=== PATIENT | male | born 1965 | race African-American/Black ===

== ENCOUNTER 2019-05-09 08:28 | Outpatient (CLI) | payer OTHER ==
--- NOTE | 2019-05-09 09:00 | ULT ---
ULTRASOUND ABDOMEN LIMITED: (RIGHT UPPER QUADRANT) DATE: 05/09/2019 HISTORY: 53-year-old male with elevated LFTs. FINDINGS: Gallbladder:Not excessively distended. Normal mural thickness. No gallstones identified. No perichole cystic fluid. Common duct: 3 mm. Liver:Diffusely mildly increased echogenicity, but homogeneous. This could be normal, or could repres ent fatty liver. Pancreas:Hypoechoic appearance of portions of pancreatic head and proximal body, raising the possibil ity of acute pancreatitis. Several hyperechoic foci at the pancreatic head and proximal body, questionable for calcifications, raising the possibility of chronic pancreatitis. Distal body and christiano l of pancreas obscured by shadowing from bowel gas. Right kidney:No hydronephrosis. IMPRESSION: 1. Nonspecific findings of the pancreas raising the possibility of acute and chronic pancreatitis. Re commend correlation with serum lipase and amylase. CT would be able to demonstrate pancreas calcifications, if actually present. 2. Nonspecific appearance of liver. 3. No evidence of cholelithiasis or acute cholecystitis.
== END 2019-05-09 08:29 | disposition home or self-care (01) ==
LOC: BICULT 08:28
PROVIDERS: ATTEND Family Medicine
DX: R74.8 Abnormal levels of other serum enzymes (principal)
CPT/HCPCS: 93975

== ENCOUNTER 2021-03-21 08:49 | Outpatient (CLI) | payer OTHER | END 2021-03-21 08:50 | disposition home or self-care (01) | LOC: BICCT 08:49 | PROVIDERS: ATTEND Family Medicine | DX: R63.4 Abnormal weight loss (principal) | CPT/HCPCS: 74177 ==

== ENCOUNTER 2022-03-14 02:59 | Inpatient (IN) | payer OTHER ==
[2022-03-14] MEDS ORDERED: Acetaminophen 325 MG TAB PO PRN (05:29)
[2022-03-14 05:41] VITALS: BMI 18.5
[2022-03-14] MEDS ORDERED: HYDROcodone/Acetaminophen 5/325 mg Tablet PO PRN ×2 (09:22)
[2022-03-14] MEDS ORDERED: Bisacodyl 10 MG SUPP PR PRN (09:22)
[2022-03-14] MEDS ORDERED: Ondansetron PF 4 MG/2 ML Vial IVP PRN (09:22)
[2022-03-14] MEDS: Piperacillin/Tazobactam 3.375 GM in Sodium Chloride 0.9% 100 ML IVPB SCH ×2 (11:15→21:33)
[2022-03-14] MEDS ORDERED: Iopamidol-370 76% 500 ML 1 ML ONE (13:07)
[2022-03-14] MEDS ORDERED: Piperacillin/Tazobactam 4.5 GM in Sodium Chloride 0.9% 100 ML IVPB SCH (14:00)
[2022-03-14] MEDS: Sodium Chloride 0.9% 1,000 ML IV SCH (21:33)
[2022-03-14] MEDS: hydrOXYzine Pamoate 25 mg Capsule PO SCH (21:33)
[2022-03-14] MEDS: Ferrous Sulfate 325 MG TAB PO SCH (21:33)
[2022-03-14] MEDS: Magnesium Oxide 400 MG TAB PO SCH (21:33)
[2022-03-15] MEDS: Vancomycin 1 GM in Premix Bag 1 BAG IVPB SCH (02:33)
[2022-03-15] MEDS: Piperacillin/Tazobactam 3.375 GM in Sodium Chloride 0.9% 100 ML IVPB SCH ×4 (03:50→20:56)
[2022-03-15] MEDS: Levothyroxine Sodium 25 MCG TAB PO SCH (05:25)
[2022-03-15] MEDS: Sodium Chloride 0.9% 1,000 ML IV SCH (05:27)
[2022-03-15 06:01] LABS: #Eosinphils 0.6 thou/uL (0.0-0.7); #Monocytes 0.9 thou/uL (0.11-0.59); #Neutrophils 10.1 thou/uL (1.40-6.50); %Eosinophils 4.9 % (0.0-10.0); %Lymphocytes 7.6 % (21.0-51.0); %Monocytes 7.5 % (0.0-10.0); Hemoglobin 7.9 g/dL (14.0-18.0); Mean Corpuscular HGB CONC 33.8 g/dL (32.0-36.0); Mean Corpuscular Volume 88.7 fl (78.0-98.0); Platelet Count 621 10x3/uL (130-400); RBC Distribution Width 14.3 % (11.5-14.5); Red Blood Cell (RBC) Count 2.63 mill/uL (4.70-6.10); White Blood Cell (WBC) Count 12.6 10x3/uL (4.8-10.8)
[2022-03-15 06:26] LABS: Anion Gap 14 mmol/L (10-20); BUN (Urea Nitrogen) 10 mg/dL (8.4-25.7); Calc. Creatinine Clearance 61 mL/min (70-130); Calcium 8.8 mg/dL (7.8-10.44); Carbon Dioxide 22 mmol/L (22-29); Chloride 99 mmol/L (98-107); Estimated GFR 90; Glucose 102 mg/dL (70-105); Potassium 4.1 mmol/L (3.5-5.1); Sodium 131 mmol/L (136-145)
[2022-03-15] MEDS ORDERED: Sodium Chloride 0.9% 1,000 ML IV SCH (08:00)
[2022-03-15] MEDS: Cyanocobalamin (Vitamin B-12) 1,000 MCG TAB PO SCH (09:47)
[2022-03-15] MEDS: Ferrous Sulfate 325 MG TAB PO SCH ×2 (09:47→21:03)
[2022-03-15] MEDS: Enoxaparin Sodium 40 MG/0.4 ML SYRINGE SC SCH (09:47)
[2022-03-15] MEDS: hydrOXYzine Pamoate 25 mg Capsule PO SCH ×2 (09:48→20:51)
[2022-03-15] MEDS: Magnesium Oxide 400 MG TAB PO SCH ×2 (09:48→20:50)
[2022-03-15] MEDS ORDERED: fentaNYL PF 100 MCG/2 ML SYRINGE ONE ×2 (09:52→11:26)
[2022-03-15] MEDS ORDERED: PROPOFOL 200 MG/20 ML VIAL ONE (11:36)
[2022-03-15] MEDS ORDERED: FENTANYL 50 MCG/ML 1 ML VIAL ONE (12:47)
[2022-03-15] MEDS: Acetaminophen 325 MG TAB PO PRN (20:50)
[2022-03-15] MEDS: traMADol HCl 50 MG TAB PO PRN (20:51)
[2022-03-16] MEDS: Vancomycin 1 GM in Premix Bag 1 BAG IVPB SCH (01:24)
[2022-03-16 01:49] LABS: Vancomycin, Trough 13.3 ug/mL
[2022-03-16] MEDS: Piperacillin/Tazobactam 3.375 GM in Sodium Chloride 0.9% 100 ML IVPB SCH ×3 (05:08→20:56)
[2022-03-16] MEDS: traMADol HCl 50 MG TAB PO PRN ×2 (05:09→14:20)
[2022-03-16] MEDS: Levothyroxine Sodium 25 MCG TAB PO SCH (05:09)
[2022-03-16] MEDS: Acetaminophen 325 MG TAB PO PRN ×2 (05:10→10:11)
[2022-03-16] MEDS: Cyanocobalamin (Vitamin B-12) 1,000 MCG TAB PO SCH (10:12)
[2022-03-16] MEDS: Magnesium Oxide 400 MG TAB PO SCH ×2 (10:12→20:55)
[2022-03-16] MEDS: hydrOXYzine Pamoate 25 mg Capsule PO SCH ×2 (10:12→20:55)
[2022-03-16] MEDS: Ferrous Sulfate 325 MG TAB PO SCH ×2 (10:12→20:55)
[2022-03-16] MEDS: Enoxaparin Sodium 40 MG/0.4 ML SYRINGE SC SCH (10:13)
[2022-03-17] MEDS: Vancomycin 1 GM in Premix Bag 1 BAG IVPB SCH (01:41)
[2022-03-17] MEDS: Piperacillin/Tazobactam 3.375 GM in Sodium Chloride 0.9% 100 ML IVPB SCH ×2 (06:14→14:27)
[2022-03-17] MEDS: Levothyroxine Sodium 25 MCG TAB PO SCH (06:14)
[2022-03-17] MEDS: Magnesium Oxide 400 MG TAB PO SCH ×2 (10:24→20:28)
[2022-03-17] MEDS: hydrOXYzine Pamoate 25 mg Capsule PO SCH ×2 (10:24→20:28)
[2022-03-17] MEDS: Enoxaparin Sodium 40 MG/0.4 ML SYRINGE SC SCH (10:24)
[2022-03-17] MEDS: Cyanocobalamin (Vitamin B-12) 1,000 MCG TAB PO SCH (10:24)
[2022-03-17] MEDS: Ferrous Sulfate 325 MG TAB PO SCH ×2 (10:24→20:27)
[2022-03-17] MEDS: traMADol HCl 50 MG TAB PO PRN (20:25)
[2022-03-17] MEDS: Amoxicillin/Potassium Clav 500 MG TAB PO SCH (20:26)
[2022-03-17] MEDS ORDERED: Lisinopril 10 MG TAB PO SCH (23:45)
[2022-03-18 01:26] LABS: Vancomycin, Trough 16.5 ug/mL
[2022-03-18] MEDS: Vancomycin 1 GM in Premix Bag 1 BAG IVPB SCH (02:05)
[2022-03-18] MEDS: traMADol HCl 50 MG TAB PO PRN ×2 (05:15→14:17)
[2022-03-18] MEDS: Levothyroxine Sodium 25 MCG TAB PO SCH (05:16)
[2022-03-18] MEDS: hydrOXYzine Pamoate 25 mg Capsule PO SCH (08:54)
[2022-03-18] MEDS: Magnesium Oxide 400 MG TAB PO SCH (08:54)
[2022-03-18] MEDS: Cyanocobalamin (Vitamin B-12) 1,000 MCG TAB PO SCH (08:54)
[2022-03-18] MEDS: Amoxicillin/Potassium Clav 500 MG TAB PO SCH (08:54)
[2022-03-18] MEDS: Ferrous Sulfate 325 MG TAB PO SCH (08:54)
[2022-03-18] MEDS: Enoxaparin Sodium 40 MG/0.4 ML SYRINGE SC SCH (08:54)
[2022-03-18 15:58] VITALS: BP 163/89; TEMP 98.7
== END 2022-03-18 17:57 | disposition home or self-care (01) | DRG 475 ==
LOC: SURG B 02:59
PROVIDERS: ADMIT Student in an Organized Health Care Education/Training Program; ATTEND Internal Medicine
PROC: 0Y6N0ZB Detachment at Left Foot, Partial 2nd Ray, Open Approach (ICD-10-PCS; principal; 2022-03-15)
PROC: 0Y6N0ZC Detachment at Left Foot, Partial 3rd Ray, Open Approach (ICD-10-PCS; 2022-03-15)
DX: M86.8X7 Other osteomyelitis, ankle and foot (principal); E87.1 Hypo-osmolality and hyponatremia; L02.612 Cutaneous abscess of left foot; L97.529 Non-pressure chronic ulcer of other part of left foot with unspecified severity; I73.9 Peripheral vascular disease, unspecified; I10 Essential (primary) hypertension; D63.8 Anemia in other chronic diseases classified elsewhere; M06.9 Rheumatoid arthritis, unspecified; E03.9 Hypothyroidism, unspecified; M19.90 Unspecified osteoarthritis, unspecified site; Z89.421 Acquired absence of other right toe(s); Z79.890 Hormone replacement therapy; Z98.890 Other specified postprocedural states; Z79.899 Other long term (current) drug therapy; M10.9 Gout, unspecified; F10.10 Alcohol abuse, uncomplicated; B96.1 Klebsiella pneumoniae [K. pneumoniae] as the cause of diseases classified elsewhere; B95.61 Methicillin susceptible Staphylococcus aureus infection as the cause of diseases classified elsewhere
CPT/HCPCS: 36415; 75635; 80048; 80202; 85025; 87070; 87077; 87186; 87205; 88305; 88311; 97139; J1650; J2543; J2704; J3010; J3370; J3490; J7050; Q0177; Q9967

== ENCOUNTER 2023-06-13 01:12 | Inpatient (IN) | payer OTHER ==
[2023-06-13 05:57] VITALS: BMI 20.9
[2023-06-13] MEDS ORDERED: Ondansetron PF 4 MG/2 ML Vial IVP PRN (06:07)
[2023-06-13] MEDS ORDERED: Acetaminophen 325 MG TAB PO PRN (06:07)
[2023-06-13 06:23] LABS: #Eosinphils 0.2 thou/uL (0.0-0.7); #Monocytes 0.4 thou/uL (0.11-0.59); %Basophils 0.3 % (0.0-1.0); %Eosinophils 2.8 % (0.0-10.0); %Lymphocytes 11.8 % (21.0-51.0); %Monocytes 6.8 % (0.0-10.0); %Neutrophils 78.1 % (42.0-75.0); Hematocrit 26.3 % (42.0-52.0); Hemoglobin 8.8 g/dL (14.0-18.0); Mean Corpuscular HGB CONC 33.5 g/dL (32.0-36.0); Mean Corpuscular Hemoglobin 29.5 pg (27.0-31.0); Mean Corpuscular Volume 88.3 fl (78.0-98.0); Mean Platelet Volume 9.4 fL (7.4-10.4); Platelet Count 247 10x3/uL (130-400); RBC Distribution Width 15.1 % (11.5-14.5); Red Blood Cell (RBC) Count 2.98 mill/uL (4.70-6.10); White Blood Cell (WBC) Count 6.4 10x3/uL (4.8-10.8)
[2023-06-13 06:54] LABS: Anion Gap 17 mmol/L (10-20); BUN (Urea Nitrogen) 19 mg/dL (8.4-25.7); Calc. Creatinine Clearance 61 mL/min (70-130); Calcium 9.2 mg/dL (7.8-10.44); Carbon Dioxide 16 mmol/L (22-29); Chloride 105 mmol/L (98-107); Estimated GFR 79; Glucose 98 mg/dL (70-105); Potassium 4.3 mmol/L (3.5-5.1); Sodium 134 mmol/L (136-145)
[2023-06-13] MEDS ORDERED: Senokot S 8.6-50 MG TAB PO PRN (09:04)
[2023-06-13] MEDS ORDERED: HYDROcodone/Acetaminophen 5/325 mg Tablet PO PRN (09:04)
[2023-06-13] MEDS ORDERED: hydrALAZINE 20 MG/ML VIAL SLOW IVP PRN (09:04)
[2023-06-13] MEDS ORDERED: Electrolyte Replacement Protocol 1 EACH FS SCH (09:15)
[2023-06-13] MEDS ORDERED: Electrolyte Replacement Protocol FS PRN (09:30)
[2023-06-13] MEDS ORDERED: VANCOMYCIN IVPB PRN (09:32)
[2023-06-13] MEDS: Folic Acid 1 MG TAB PO SCH (10:25)
[2023-06-13] MEDS: Multivit, Therapeutic 1 TAB PO SCH (10:25)
[2023-06-13] MEDS: Metoprolol Tartrate 50 MG TAB PO SCH ×2 (10:25→21:09)
[2023-06-13] MEDS: Thiamine HCl 200 MG/2 ML VIAL SLOW IVP SCH (10:26)
[2023-06-13] MEDS: Sodium Chloride 0.9% 1,000 ML IV SCH (11:16)
[2023-06-13] MEDS ORDERED: Vancomycin 1 GM in Sodium Chloride 0.9% 250 ML 300 ML IVPB SCH (12:00)
[2023-06-13] MEDS ORDERED: Cefepime 2 GM in Sodium Chloride 0.9% 100 ML IVPB SCH (13:00)
[2023-06-13] MEDS: Cefepime 1 GM in Sodium Chloride 0.9% 100 ML IVPB SCH (15:13)
[2023-06-13] MEDS: Vancomycin HCl 750 MG in Sodium Chloride 0.9% 250 ML 250 ML IVPB SCH (16:16)
[2023-06-13] MEDS: Ferrous Sulfate 325 MG TAB PO SCH (21:09)
[2023-06-13] MEDS: Magnesium Oxide 400 MG TAB PO SCH (21:09)
[2023-06-14 05:08] LABS: #Eosinphils 0.3 thou/uL (0.0-0.7); #Monocytes 0.5 thou/uL (0.11-0.59); #Neutrophils 5.2 thou/uL (1.40-6.50); %Basophils 0.4 % (0.0-1.0); %Eosinophils 4.7 % (0.0-10.0); %Lymphocytes 11.7 % (21.0-51.0); %Monocytes 6.9 % (0.0-10.0); Hematocrit 23.7 % (42.0-52.0); Hemoglobin 8.2 g/dL (14.0-18.0); Mean Corpuscular HGB CONC 34.6 g/dL (32.0-36.0); Mean Corpuscular Hemoglobin 29.6 pg (27.0-31.0); Mean Platelet Volume 10.4 fL (7.4-10.4); Platelet Count 265 10x3/uL (130-400); RBC Distribution Width 14.6 % (11.5-14.5); Red Blood Cell (RBC) Count 2.77 mill/uL (4.70-6.10); White Blood Cell (WBC) Count 6.8 10x3/uL (4.8-10.8)
[2023-06-14] MEDS: Levothyroxine Sodium 25 MCG TAB PO SCH (05:10)
[2023-06-14 05:46] LABS: Anion Gap 15 mmol/L (10-20); BUN (Urea Nitrogen) 20 mg/dL (8.4-25.7); Calc. Creatinine Clearance 51 mL/min (70-130); Calcium 8.7 mg/dL (7.8-10.44); Carbon Dioxide 18 mmol/L (22-29); Chloride 102 mmol/L (98-107); Estimated GFR 63; Glucose 120 mg/dL (70-105); Potassium 3.8 mmol/L (3.5-5.1); Sodium 131 mmol/L (136-145)
[2023-06-14 05:47] LABS: Mean Corpuscular Volume 85.6 fl (78.0-98.0)
[2023-06-14] MEDS: Folic Acid 1 MG TAB PO SCH (10:32)
[2023-06-14] MEDS: Lisinopril 10 MG TAB PO SCH (10:32)
[2023-06-14] MEDS: Multivit, Therapeutic 1 TAB PO SCH (10:32)
[2023-06-14] MEDS ORDERED: Vancomycin HCl 750 MG in Sodium Chloride 0.9% 250 ML 250 ML IVPB SCH (13:30)
[2023-06-14 13:33] LABS: Vancomycin, Trough 28.9 ug/mL
[2023-06-14] MEDS: Sodium Chloride 0.9% 1,000 ML IV SCH (18:40)
[2023-06-15] MEDS: Vancomycin HCl 750 MG in Sodium Chloride 0.9% 250 ML 250 ML IVPB SCH (00:28)
[2023-06-15] MEDS: Sodium Chloride 0.9% 1,000 ML IV SCH (15:56)
[2023-06-16 04:25] LABS: #Eosinphils 0.4 thou/uL (0.0-0.7); #Monocytes 0.7 thou/uL (0.11-0.59); %Basophils 0.5 % (0.0-1.0); %Lymphocytes 14.7 % (21.0-51.0); %Monocytes 11.6 % (0.0-10.0); %Neutrophils 66.9 % (42.0-75.0); Hematocrit 21.4 % (42.0-52.0); Hemoglobin 7.4 g/dL (14.0-18.0); Mean Corpuscular HGB CONC 34.6 g/dL (32.0-36.0); Mean Corpuscular Hemoglobin 29.4 pg (27.0-31.0); Mean Corpuscular Volume 84.9 fl (78.0-98.0); Mean Platelet Volume 9.9 fL (7.4-10.4); Platelet Count 285 10x3/uL (130-400); RBC Distribution Width 14.7 % (11.5-14.5); Red Blood Cell (RBC) Count 2.52 mill/uL (4.70-6.10)
[2023-06-16 05:00] LABS: Anion Gap 12 mmol/L (10-20); BUN (Urea Nitrogen) 18 mg/dL (8.4-25.7); Calc. Creatinine Clearance 59 mL/min (70-130); Calcium 8.3 mg/dL (7.8-10.44); Carbon Dioxide 20 mmol/L (22-29); Chloride 107 mmol/L (98-107); Estimated GFR 75; Glucose 109 mg/dL (70-105); Potassium 4.1 mmol/L (3.5-5.1); Sodium 135 mmol/L (136-145)
[2023-06-16 05:09] LABS: Vancomycin, Random 36.9 ug/mL (See Comment)
[2023-06-16] MEDS ORDERED: Lorazepam 0.5 MG TAB PO PRN (09:10)
[2023-06-16] MEDS: Thiamine 100 MG TAB PO SCH (09:11)
[2023-06-16] MEDS: Amlodipine 5 MG TAB PO SCH (09:11)
[2023-06-16 12:58] VITALS: BP 151/99; TEMP 97.2
== END 2023-06-16 14:21 | disposition home or self-care (01) | DRG 638 ==
LOC: SURG A 05:50 → OBSVTOIN 17:38
PROVIDERS: ADMIT Internal Medicine; ATTEND Family Medicine
PROC: 0HBNXZZ Excision of Left Foot Skin, External Approach (ICD-10-PCS; principal; 2023-06-13)
DX: E11.621 Type 2 diabetes mellitus with foot ulcer (principal); E87.1 Hypo-osmolality and hyponatremia; L03.116 Cellulitis of left lower limb; M86.9 Osteomyelitis, unspecified; N17.9 Acute kidney failure, unspecified; M10.9 Gout, unspecified; E03.9 Hypothyroidism, unspecified; D63.8 Anemia in other chronic diseases classified elsewhere; F10.10 Alcohol abuse, uncomplicated; L97.529 Non-pressure chronic ulcer of other part of left foot with unspecified severity; N18.9 Chronic kidney disease, unspecified; E11.22 Type 2 diabetes mellitus with diabetic chronic kidney disease; E11.51 Type 2 diabetes mellitus with diabetic peripheral angiopathy without gangrene; I12.9 Hypertensive chronic kidney disease with stage 1 through stage 4 chronic kidney disease, or unspecified chronic kidney disease; Z89.431 Acquired absence of right foot; Z89.422 Acquired absence of other left toe(s); Z79.890 Hormone replacement therapy; Z79.899 Other long term (current) drug therapy; S91.302A Unspecified open wound, left foot, initial encounter; I10 Essential (primary) hypertension; Z55.6 Problems related to health literacy; X58.XXXA Exposure to other specified factors, initial encounter
CPT/HCPCS: 36415; 80048; 80053; 80202; 83605; 85025; 86140; 87040; 96361; 96365; 96367; 96374; 96375; 97139; G0378; J0692; J3370; J3411; J3490; J7050

== ENCOUNTER 2025-04-05 09:44 | Outpatient (CLI) | payer OTHER | END 2025-04-05 09:45 | disposition home or self-care (01) | LOC: SJX 09:44 | DX: L89.893 Pressure ulcer of other site, stage 3 (principal) ==